=== PATIENT | female | born 1995 | race African-American/Black ===

== ENCOUNTER 2016-07-27 01:43 | Emergency (ER) | payer BC ==
[~2016-07-27] VITALS: Ht 170.2 cm; Wt 57.0 kg
[2016-07-27 01:47] VITALS: BP 122/70; PULSE 111; RESP 16; TEMP 98.2; O2SAT 100
[2016-07-27] MEDS ORDERED: BIRTH CONTROL PO (01:54)
[2016-07-27] MEDS ORDERED: ALBUAER3 INH (01:54)
--- NOTE | 2016-07-27 02:48 | RADRPT ---
EXAM DATE/TIME: 07/27/2016 02:34 [place] COMPARISON: No previous studies available for comparison. INDICATIONS : Shortness of breath and chest pressure. MEDICAL HISTORY : Asthma, Irregular heartbeat SURGICAL HISTORY : None. ENCOUNTER: Initial ACUITY: 2 days PAIN SCORE: 6/10 LOCATION: Bilateral chest FINDINGS: A single view of the chest demonstrates the lungs to be symmetrically aerated without evidence of mas s, infiltrate or effusion. The cardiomediastinal contours are unremarkable. Osseous structures are intact. CONCLUSION: No acute cardiopulmonary process. Pino Casanova MD on July 27, 2016 at 2:47 Board Certified Radiologist. This report was verified electronically.
[2016-07-27 03:06] LABS: BACTERIA, URINE RARE /hpf; BLOOD, URINE MOD (NEG); GLUCOSE,URINE NEG (NEG); KETONE, URINE NEG (NEG); MUCUS URINE FEW /lpf (OCC); NITRITE,URINE NEG (NEG); SQUAMOUS EPITHELIAL CELL URINE 2 /hpf (0-5); URINE COLOR YELLOW (YELLW/STRAW)
[2016-07-27 03:07] LABS: COMMENT (UR) CULT NOT INDICATED; CULTURE IF INDICATED CULT NOT INDICATED
[2016-07-27 03:51] LABS: BASOPHIL % 0.3 % (0.0-2.0); EOSINOPHIL # 0.2 TH/MM3 (0-0.4); HEMATOCRIT 33.1 % (35.0-46.0); HEMO FLAGS DIFF FINAL; LYMPH % 15.6 % (9.0-44.0); LYMPHOCYTE # 1.3 TH/MM3 (1.0-4.8); MEAN CELL VOLUME 83.5 FL (80.0-100.0); MEAN CORPUSCULAR HEMOGLOBIN 27.6 PG (27.0-34.0); MONO % 9.2 % (0.0-8.0); NEUT % 72.9 % (16.0-70.0); PLATELET COUNT 323 TH/MM3 (150-450); RED BLOOD COUNT 3.97 MIL/MM3 (4.00-5.30); RED CELL DISTRIBUTION WIDTH 13.5 % (11.6-17.2); WHITE BLOOD COUNT 8.2 TH/MM3 (4.0-11.0)
[2016-07-27 04:08] LABS: ALT (GPT) 26 U/L (9-42); ANION GAP 9 MEQ/L (5-15); AST (GOT) 12 U/L (16-38); BLOOD UREA NITROGEN 12 MG/DL (7-18); CHLORIDE 106 MEQ/L (98-107); GLOMERULAR FILTRATION RATE 77 ML/MIN (>89); POTASSIUM 3.6 MEQ/L (3.5-5.1); SODIUM (NA) 140 MEQ/L (136-145)
[2016-07-27 04:10] LABS: ALKALINE PHOSPHATASE 53 U/L (45-117); TOTAL BILIRUBIN ADULT 0.2 MG/DL (0.2-1.0)
[2016-07-27] MEDS ORDERED: ALBU6.7H INH (05:22)
[2016-07-27] MEDS ORDERED: PRED50 PO (05:22)
--- NOTE | 2016-07-27 05:22 | PD ---
HPI Chief Complaint: Respiratory Symptoms Time Seen by Provider: 03:12 Travel History International Travel<30 days: No Contact w/Intl Traveler<30days: No Traveled to known affect area: No History of Present Illness HPI 20-year-old female patient presents to the ER today with several days' history of coughing, chest tightness, shortness of breath. She states it worsens exertion. She denies any fevers, vomiting, or any other symptoms. Modifying Factors: None Associated Signs & Symptoms: Coughing, chest tightness, shortness of breath for 2 days Risk Factors: Worse with exertion PFSH Past Medical History Medical History: Denies Significant Hx LMP: NOW Social History Tobacco Use: No Allergies-Medications (Allergen,Severity, Reaction): Coded Allergies: No Known Allergies (Unverified , 07/27/16) Reported Meds & Prescriptions Reported Meds & Active Scripts Active Reported [ Control] 1 Tab PO DAILY Proair Hfa 8.5 GM Inh (Albuterol Sulfate) 90 Mcg/Act Aer 1 Puff INH Q4H PRN 108 mcg/actuation Review of Systems Except as stated in HPI: all other systems reviewed are Neg Physical Exam Narrative GENERAL: Well-nourished, well-developed young -[place] female patient in no acute distress. SKIN: Warm and dry. HEAD: Normocephalic. EYES: No scleral icterus. No injection or drainage. NECK: Supple, trachea midline. CARDIOVASCULAR: Regular rate and rhythm without murmurs, gallops, or rubs. RESPIRATORY: Breath sounds equal and decreased throughout bilaterally. No accessory muscle use. GASTROINTESTINAL: Abdomen soft, non-tender, nondistended. MUSCULOSKELETAL: No cyanosis, or edema. BACK: Nontender without obvious deformity. No CVA tenderness. Data Data Last Documented VS Vital Signs Date Time Temp Pulse Resp B/P Pulse Ox O2 Delivery O2 Flow Rate FiO2 07/27/16 01:54 20 07/27/16 01:47 98.2 111 122/70 100 Room Air Orders Complete Blood Count With Diff (07/27/16 01:56) Comprehensive Metabolic Panel (07/27/16 01:56) Electrocardiogram (07/27/16 ) Chest, Single Ap (07/27/16 ) Ed Urine Pregnancytest Poc (07/27/16 01:56) Urinalysis - C+S If Indicated (07/27/16 01:56) Labs Laboratory Tests Test 07/27/16 07/27/16 01:57 03:39 Urine Color YELLOW Urine Turbidity CLEAR Urine pH 6.0 Urine Specific [place] 1.027 Urine Protein TRACE mg/dL Urine Glucose (UA) NEG mg/dL Urine Ketones NEG mg/dL Urine Occult Blood MOD Urine Nitrite NEG Urine Bilirubin NEG Urine Urobilinogen LESS THAN 2.0 MG/DL Urine Leukocyte Esterase SMALL Urine RBC 12 /hpf Urine WBC 2 /hpf Urine Squamous Epithelial 2 /hpf Cells Urine Bacteria RARE /hpf Urine Mucus FEW /lpf Microscopic Urinalysis Comment CULT NOT INDICATED White Blood Count 8.2 TH/MM3 Red Blood Count 3.97 MIL/MM3 Hemoglobin 10.9 GM/DL Hematocrit 33.1 % Mean Corpuscular Volume 83.5 FL Mean Corpuscular Hemoglobin 27.6 PG Mean Corpuscular Hemoglobin 33.0 % Concent Red Cell Distribution Width 13.5 % Platelet Count 323 TH/MM3 Mean Platelet Volume 7.0 FL Neutrophils (%) (Auto) 72.9 % Lymphocytes (%) (Auto) 15.6 % Monocytes (%) (Auto) 9.2 % Eosinophils (%) (Auto) 2.0 % Basophils (%) (Auto) 0.3 % Neutrophils # (Auto) 6.0 TH/MM3 Lymphocytes # (Auto) 1.3 TH/MM3 Monocytes # (Auto) 0.8 TH/MM3 Eosinophils # (Auto) 0.2 TH/MM3 Basophils # (Auto) 0.0 TH/MM3 CBC Comment DIFF FINAL Differential Comment Sodium Level 140 MEQ/L Potassium Level 3.6 MEQ/L Chloride Level 106 MEQ/L Carbon Dioxide Level 25.0 MEQ/L Anion Gap 9 MEQ/L Blood Urea Nitrogen 12 MG/DL Creatinine 0.94 MG/DL Estimat Glomerular Filtration 77 ML/MIN Rate Random Glucose 108 MG/DL Calcium Level 8.7 MG/DL Total Bilirubin 0.2 MG/DL Aspartate Amino Transf 12 U/L (AST/SGOT) Alanine Aminotransferase 26 U/L (ALT/SGPT) Alkaline Phosphatase 53 U/L Total Protein 7.6 GM/DL Albumin 3.7 GM/DL MDM Medical Decision Making Medical Screen Exam Complete: Yes Emergency Medical Condition: Yes Medical Record Reviewed: Yes Interpretation(s) EKG shows NSR, no ST elevation or depression, and no arrhythmias. No significant T-wave inversions. Laboratory Tests Test 07/27/16 07/27/16 01:57 03:39 Urine Occult Blood MOD (NEG) Urine Leukocyte Esterase SMALL (NEG) Urine RBC 12 /hpf (0-3) Urine Bacteria RARE /hpf (NONE) Urine Mucus FEW /lpf (OCC) Red Blood Count 3.97 MIL/MM3 (4.00-5.30) Hemoglobin 10.9 GM/DL (11.6-15.3) Hematocrit 33.1 % (35.0-46.0) Neutrophils (%) (Auto) 72.9 % (16.0-70.0) Monocytes (%) (Auto) 9.2 % (0.0-8.0) Estimat Glomerular Filtration 77 ML/MIN (>89) Rate Random Glucose 108 MG/DL (74-106) Aspartate Amino Transf 12 U/L (16-38) (AST/SGOT) Last 24 hours Impressions Chest X-Ray 07/27/16 0000 Signed Impressions: Service Date/Time: Wednesday, July 27, 2016 02:34 - CONCLUSION: No acute cardiopulmonary process. Pino Casanova MD Differential Diagnosis Bronchitis versus asthma versus pneumonia versus URI Narrative Course Chest x-ray did not show any signs of acute pulmonary processes. EKG did not show dysrhythmias. At this point, I suspect underlying bronchitis or possible underlying asthma. She is not significantly symptomatic at this time. My plan would be to release the patient with further treatment and follow-up to primary care physician. Return for any worsening in symptoms as needed. The plan has been discussed with her and she states understanding. Diagnosis Primary Impression: ACUTE BRONCHITIS, UNSPECIFIED Med/Other Pt SpecificInfo: Prescription(s) given Scripts Albuterol 6.7 GM Inh (Proventil Hfa 6.7 GM Inh)90 Mcg/Act Aer2 Puff INH Q4-6H PRN (SHORTNESS OF BREATH) #1 INHALER Ref 0 Prov:Krista Hua MD 07/27/16 Prednisone 50 Mg Tab50 Mg PO DAILY #5 TAB Ref 0 Prov:Krista Hua MD 07/27/16 Disposition: DISCHARGE HOME Condition: Stable Krista Hua MD Jul 27, 2016 05:22
--- NOTE | 2016-07-27 18:31 | EKG ---
Date Performed: 07/27/2016 Time Performed: 03:33:37 PTAGE: 20 years EKG: Sinus rhythm WITH MARKED SINUS ARRHYTHMIA POSSIBLE LEFT ATRIAL ENLARGEMENT BORDERLINE ECG NO PREVIOUS TRACING DOCTOR: Fahad Pierre Interpretating Date/Time 07/27/2016 18:30:32
== END 2016-07-27 05:40 | disposition home or self-care (01) ==
LOC: EDBD → NEPE 01:43
DX: J20.9 Acute bronchitis, unspecified (principal); R94.31 Abnormal electrocardiogram [ECG] [EKG]
CPT/HCPCS: 71010; 80053; 81001; 84703; 85025; 93005

== ENCOUNTER 2017-02-28 01:27 | Emergency (ER) | payer BC ==
[~2017-02-28] VITALS: Ht 157.5 cm; Wt 66.0 kg
[~2017-02-28 01:27] MED LIST: ALBU6.7H INH; ALBUAER3 INH; BIRTH CONTROL PO; PRED50 PO
[2017-02-28 01:28] VITALS: BP 114/75; PULSE 96; RESP 16; TEMP 98.2; O2SAT 96
[2017-02-28] MEDS ORDERED: CYCLOBENZAPRINE HCL 10 MG TAB PO ONE (01:45)
[2017-02-28] MEDS ORDERED: CYCL1TAB29 PO (01:52)
--- NOTE | 2017-02-28 01:52 | PD ---
HPI Chief Complaint: Injury Time Seen by Provider: 01:46 Travel History International Travel<30 days: No Contact w/Intl Traveler<30days: No Traveled to known affect area: No History of Present Illness HPI Patient is a 21-year-old female presenting to the emergency reevaluation of left knee pain. Patient states she heard a pop while dancing this evening. Injury occurred approximately 3 hours prior to arrival. Patient is on a dance team in college. She reports a history of pain in that knee and was told by her primary doctor that she would need an MRI. Patient states she took naproxen at 11 PM. She states it's sore and tender to walk on. He denies any weakness, numbness. She reports the pain is a 5 out of 10. The pain is worse with ambulation. PFSH Past Medical History Asthma: Yes High Cholesterol: Yes Respiratory: Yes (ASTHMA) ?: Not LMP: 02/04/17 Past Surgical History Surgical History: No Previous Surgery Social History Alcohol Use: No Tobacco Use: No Substance Use: No Allergies-Medications (Allergen,Severity, Reaction): Coded Allergies: No Known Allergies (Unverified , 02/28/17) Reported Meds & Prescriptions Reported Meds & Active Scripts Active Flexeril (Cyclobenzaprine HCl) 10 Mg Tab 10 Mg PO TID PRN Proventil Hfa 6.7 GM Inh (Albuterol Sulfate) 90 Mcg/Act Aer 2 Puff INH Q4-6H PRN Reported [ Control] 1 Tab PO DAILY Proair Hfa 8.5 GM Inh (Albuterol Sulfate) 90 Mcg/Act Aer 1 Puff INH Q4H PRN 108 mcg/actuation Review of Systems Except as stated in HPI: all other systems reviewed are Neg Musculoskeletal: Positive: Myalgias, Arthralgias, Limited ROM, Pain Physical Exam Narrative GENERAL: Well-developed, well-nourished, alert female. Resting comfortably in no acute distress. SKIN: Warm and dry. HEAD: Normocephalic. EYES: No scleral icterus. No injection or drainage. NECK: Supple, trachea midline. No JVD or lymphadenopathy. CARDIOVASCULAR: Regular rate and rhythm without murmurs, gallops, or rubs. RESPIRATORY: Breath sounds equal bilaterally. No accessory muscle use. GASTROINTESTINAL: Abdomen soft, non-tender, nondistended. MUSCULOSKELETAL: No cyanosis, or edema. Tender to palpation over left patellar tendon. No obvious deformities noted. Full range of motion with flexion and extension of left knee. Patient is neurovascularly intact. BACK: Nontender without obvious deformity. No CVA tenderness. Data Data Last Documented VS Vital Signs Date Time Temp Pulse Resp B/P (MAP) Pulse Ox O2 Delivery O2 Flow Rate FiO2 02/28/17 01:57 02/28/17 01:28 98.2 96 16 96 Room Air Orders Orders Cyclobenzaprine (Flexeril) (02/28/17 01:45) Crutches (02/28/17 01:45) MDM Medical Decision Making Medical Screen Exam Complete: Yes Emergency Medical Condition: Yes Interpretation(s) Vital Signs Date Time Temp Pulse Resp B/P (MAP) Pulse Ox O2 Delivery O2 Flow Rate FiO2 02/28/17 01:57 02/28/17 01:28 98.2 96 16 114/75 (88) 96 Room Air Differential Diagnosis Sprain versus strain versus tendinitis versus dislocation versus less likely fracture versus other Narrative Course Patient presented for evaluation of left knee pain after hearing a pop while dancing this evening. Patient is neurovascularly intact. Exam appears most consistent with tendinitis lash strain. She was given dose of Flexeril in the emergency department. She has a prescription for naproxen with her. She was encouraged to continue taking that as prescribed. She was encouraged to rest, ice, elevate extremity. She was encouraged to avoid exacerbating activities and was provided with crutches. She was encouraged to continue gentle range of motion exercises and increase activity as tolerated. She was advised to follow- up with her primary doctor return to emergency department for any new or worsening symptoms. Patient verbalized understanding of instructions, patient is stable for discharge. Diagnosis Primary Impression: Strain of left patellar tendon Qualified Codes: S86.812A - Strain of other muscle(s) and tendon(s) at lower leg level, left leg, initial encounter Referrals: Primary Care Physician Patient Instructions: General Instructions, Patellar Tendinitis (ED) Additional Instructions: Follow-up with your primary doctor or orthopedic surgeon Rest, ice, elevate extremity Take medications as directed Continue naproxen as previously prescribed Return to emergency department for any new or worsening symptoms Med/Other Pt SpecificInfo: Prescription(s) given Scripts Cyclobenzaprine (Flexeril) 10 Mg Tab 10 MG PO TID Y for MUSCLE SPASM, #21 0 Refills Prov: Shea Eric 02/28/17 Disposition: 01 DISCHARGE HOME Condition: Stable Shea Eric Feb 28, 2017 01:52
== END 2017-02-28 02:16 | disposition home or self-care (01) ==
LOC: NEPD 01:27
DX: S86.812A Strain of other muscle(s) and tendon(s) at lower leg level, left leg, initial encounter (principal); X58.XXXA Exposure to other specified factors, initial encounter; Y93.41 Activity, dancing
CPT/HCPCS: 99283; E0113